=== PATIENT | male | born 1990 | race American Indian/Alaskan Native ===

== ENCOUNTER 2020-04-30 19:32 | Observation (INO) | payer MEDICARE ==
--- NOTE | 2020-04-30 21:25 | Event Note ---
ED Screening Note Date of service: 04/30/20 Time: 21:24 ED Screening Note: 30-year-old -Citizen Of [place] male reports that he was not able to do dialysis today secondary to his fistula swollen. This initial assessment/diagnostic orders/clinical plan/treatment(s) is/are subject to change based on patients health status, clinical progression and re- assessment by fellow clinical providers in the ED. Further treatment and workup at subsequent clinical providers discretion. Patient/guardian urged not to elope from the ED as their condition may be serious if not clinically assessed and managed. Initial orders include:
[2020-04-30 21:55] LABS: Basophils # (Auto) 0.1 K/mm3 (0.0-0.1); Eosinophils # (Auto) 0.1 K/mm3 (0.0-0.4); Eosinophils % (Auto) 1.8 % (0.0-4.3); Hematocrit 30.9 % (35.5-45.6); Hemoglobin 10.1 gm/dl (11.8-15.2); Lymphocytes # (Auto) 0.6 K/mm3 (1.2-5.4); Lymphocytes % (Auto) 8.8 % (13.4-35.0); Mean Corpuscular HGB Conc 33 % (32-34); Mean Corpuscular Volume 94 fl (84-94); Monocytes # (Auto) 0.5 K/mm3 (0.0-0.8); Monocytes % (Auto) 6.9 % (0.0-7.3); Platelet Count 317 K/mm3 (140-440); Red Blood Count 3.31 M/mm3 (3.65-5.03); Red Cell Distribution Width 18.4 % (13.2-15.2)
[2020-04-30 22:05] LABS: Albumin 4.6 g/dL (3.9-5); Calcium 10.2 mg/dL (8.4-10.2)
[2020-05-01] MEDS ORDERED: ONDANSETRON 4 MG/2 ML INJ IV ONE (09:20)
[2020-05-01] MEDS ORDERED: HYDROmorphone 1 MG/1 ML INJ IV ONE (09:21)
[2020-05-01] MEDS ORDERED: hydrALAZINE 20 MG/1 ML INJ IV ONE (09:23)
--- NOTE | 2020-05-01 09:23 | Emergency Department Report ---
ED General Adult HPI - General Chief complaint: Nausea/Vomiting/Diarrhea Stated complaint: NAUSEA AND VOMITING, BODY PAIN PUI?: No Time Seen by Provider: 05/01/20 08:53 Source: patient, RN notes reviewed, old records reviewed Mode of arrival: Stretcher Limitations: No Limitations, Physical Limitation - History of Present Illness Initial comments: The patient was evaluated in the emergency department for symptoms described in the history of present illness. He/she was evaluated in the context of the global COVID-19 pandemic, which necessitated consideration that the patient might be at risk for infection with the virus that causes COVID-19. Institutional protocols and algorithms that pertain to the evaluation of patient s at risk for COVID-19 are in a state of rapid change based on information released by regulatory bodies including the CDC and federal and state organizations. These policies and algorithms were followed during the patient's care in the emergency department. Please note that these policies, procedures and recommendations changed on a rapid basis. The patient is a 30-year-old gentleman. He is not known to myself previously. He typically lives in [facility]. He states that he is blind, has a left upper extremity hemodialysis fistula, and reports that he has a history of hypertension, and end-stage renal disease on hemodialysis. He states he was last dialyzed on Sunday. He presents to the ER with 2 complaints. His first complaint is subjective left upper extremity pain and swelling, present for 1 week. He reports no issues with receiving hemodialysis during his last session, 6 days ago. He cannot tell me why he missed hemodialysis yesterday, or the day before. He makes no complaint of extremity weakness/numbness. His next complaint is diffuse abdominal pain. He states "it has been there for minute." I try to clarify with the patient how long the pain has been there for. He states "it has been there for a long time." He indicates surgical history for cholecystectomy and appendectomy in the distant past. Positive nausea, vomiting. No diarrhea. No urinary symptoms. Also reports no relief or change in symptoms with taking a hot bath, or hot shower. During his history and physical with myself and the nurse taking care of him, he made multiple requests for Dilaudid/hydromorphone. As soon as his IV was placed, he asked the nurse "when am i getting my Dilaudid." -: Gradual, days(s) Location: abdomen, left, upper extremity Radiation: non-radiation Consistency: constant Improves with: other (Abdominal pain decreases with pain medication. It increases with palpation) Worsens with: movement, other (Palpation) - Related Data Allergies Allergy/AdvReac Type Severity Reaction Status Date / Time No Known Allergies Allergy Unverified 04/30/20 22:16 ED Review of Systems ROS: Stated complaint: NAUSEA AND VOMITING, BODY PAIN Other details as noted in HPI Constitutional: malaise, weakness. denies: fever Eyes: denies: eye discharge ENT: denies: epistaxis Cardiovascular: denies: chest pain Gastrointestinal: abdominal pain Genitourinary: denies: dysuria Musculoskeletal: arthralgia, myalgia Skin: denies: lesions Neurological: weakness Psychiatric: anxiety Hematological/Lymphatic: denies: easy bleeding ED Past Medical Hx - Past Medical History Previous Medical History?: Yes Hx Hypertension: Yes Hx Diabetes: Yes Hx Renal Disease: Yes Hx Seizures: Yes Additional medical history: BLIND - Surgical History Past Surgical History?: Yes Hx Cholecystectomy: Yes Hx Appendectomy: Yes - Social History Smoking Status: Never Smoker Substance Use Type: Marijuana ED Physical Exam - General Limitations: Physical Limitation General appearance: alert, anxious - Head Head exam: Present: atraumatic, normocephalic - Eye Eye exam: Present: normal appearance, EOMI. Absent: nystagmus - ENT ENT exam: Present: normal exam, normal orophraynx, mucous membranes moist, normal external ear exam - Neck Neck exam: Present: normal inspection, full ROM. Absent: tenderness, meningismus - Respiratory Respiratory exam: Present: normal lung sounds bilaterally. Absent: respiratory distress, wheezes, rales, rhonchi, stridor, decreased breath sounds - Cardiovascular Cardiovascular Exam: Present: normal rhythm, tachycardia, normal heart sounds. Absent: bradycardia, irregular rhythm, systolic murmur, diastolic murmur, rubs, gallop - GI/Abdominal GI/Abdominal exam: Present: soft, tenderness (Diffuse abdominal tenderness. The patient deliberately flexes his abdominal wall when I examined him.). Absent: distended, guarding, rebound, rigid, pulsatile mass - Rectal Rectal exam: Present: deferred - Extremities Exam Extremities exam: Present: normal inspection (There is a left upper extremity fistula. There is a positive thrill and bruit. There is no significant tenderness. There is good pulsatility.), full ROM, pedal edema (1+ edema bilateral lower extremities), other (2+ pulses noted in the bilateral upper and lower extremities. There is no palpable cord. negative Homans sign. Muscular compartments are soft. The pelvis is stable.). Absent: calf tenderness - Back Exam Back exam: Present: normal inspection, full ROM. Absent: tenderness, CVA tenderness (R), CVA tenderness (L), paraspinal tenderness, vertebral tenderness - Neurological Exam Neurological exam: Present: alert, other (No facial droop. Tongue midline. Extraocular movements intact bilaterally. Facial sensation intact to light touch in V1, V2, V3 distribution bilaterally. 5 and a 5 strength in 4 extremities. Sensation intact to light touch in 4 extremities.) - Psychiatric Psychiatric exam: Present: anxious - Skin Skin exam: Present: warm, dry, intact, normal color. Absent: rash ED Course Vital Signs 04/30/20 05/01/20 05/01/20 21:16 09:28 09:30 Temperature 98.1 F Pulse Rate 114 H 108 H 107 H Pulse Rate [ Apical] Pulse Rate [ Left Radial] Pulse Rate [ Right Radial] Respiratory 16 14 13 Rate Blood Pressure 181/120 159/101 Blood Pressure [Left] O2 Sat by Pulse 99 100 100 Oximetry 05/01/20 05/01/20 05/01/20 09:46 09:51 10:00 Temperature Pulse Rate 104 H 101 H 104 H Pulse Rate [ Apical] Pulse Rate [ Left Radial] Pulse Rate [ Right Radial] Respiratory 18 22 Rate Blood Pressure 159/101 158/101 165/106 Blood Pressure [Left] O2 Sat by Pulse 100 97 Oximetry 05/01/20 05/01/20 05/01/20 10:15 10:30 11:00 Temperature Pulse Rate 103 H 106 H 110 H Pulse Rate [ Apical] Pulse Rate [ Left Radial] Pulse Rate [ Right Radial] Respiratory 24 14 18 Rate Blood Pressure 157/98 151/96 161/93 Blood Pressure [Left] O2 Sat by Pulse 98 96 98 Oximetry 05/01/20 05/01/20 05/01/20 11:15 11:30 11:45 Temperature Pulse Rate 110 H 108 H 111 H Pulse Rate [ Apical] Pulse Rate [ Left Radial] Pulse Rate [ Right Radial] Respiratory 18 18 13 Rate Blood Pressure 156/103 153/100 157/92 Blood Pressure [Left] O2 Sat by Pulse 98 98 96 Oximetry 05/01/20 05/01/20 05/01/20 12:00 12:10 12:20 Temperature Pulse Rate 110 H 109 H 109 H Pulse Rate [ Apical] Pulse Rate [ Left Radial] Pulse Rate [ Right Radial] Respiratory 17 19 18 Rate Blood Pressure 158/106 158/106 157/101 Blood Pressure [Left] O2 Sat by Pulse 97 98 Oximetry 05/01/20 05/01/20 05/01/20 12:30 12:40 12:50 Temperature Pulse Rate 110 H 109 H 109 H Pulse Rate [ Apical] Pulse Rate [ Left Radial] Pulse Rate [ Right Radial] Respiratory 21 15 21 Rate Blood Pressure 156/105 156/105 149/102 Blood Pressure [Left] O2 Sat by Pulse 98 98 Oximetry 05/01/20 05/01/20 05/01/20 13:00 13:03 13:10 Temperature Pulse Rate 108 H 106 H Pulse Rate [ 86 Apical] Pulse Rate [ 86 Left Radial] Pulse Rate [ 86 Right Radial] Respiratory 20 19 22 Rate Blood Pressure 149/99 156/105 Blood Pressure [Left] O2 Sat by Pulse 99 99 Oximetry 05/01/20 05/01/20 05/01/20 13:15 13:20 13:31 Temperature Pulse Rate 89 Pulse Rate [ Apical] Pulse Rate [ Left Radial] Pulse Rate [ Right Radial] Respiratory Rate Blood Pressure 156/105 156/105 Blood Pressure 142/90 [Left] O2 Sat by Pulse 88 Oximetry 05/01/20 13:41 Temperature Pulse Rate Pulse Rate [ Apical] Pulse Rate [ Left Radial] Pulse Rate [ Right Radial] Respiratory Rate Blood Pressure 156/105 Blood Pressure [Left] O2 Sat by Pulse 96 Oximetry - Reevaluation(s) Reevaluation #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 05/01/20 11:20 Report Prepared: 05/01/2020 Date Range: 05/01/2019 05/01/2020 Pdf icon Download PDF Csv icon Download CSV norm merida Summary Summary Total Prescriptions 11 Total Private Pay 0 Total Prescribers 9 Total Pharmacies 4 Opioids* (excluding buprenorphine) Current Qty 0.0 Current MME/day 0.0 30 Day Avg MME/day 0.0 Buprenorphine* Current Qty 0.0 Current mg/day 0.0 30 Day Avg mg/day 0.0 Prescriptions Filled ID Written Drug QTY Days Prescriber Rx # Pharmacy * R efills Daily Dose Pymt Type [employer] 03/09/2020 1 03/09/2020 OXYCODON-ACETAMINOPHEN 7.5-325 26.0 5 SREE PER [id number] [facility] (6472) 0 58.5 [place]ME [place] 02/11/2020 2 02/11/2020 OXYCODONE HCL 5 MG TABLET 20.0 5 GR WEST [id number] [facility] (2120) 0 30.0 MME [place] 01/15/2020 1 01/15/2020 HYDROMORPHONE 4 MG TABLET 30.0 10 NA ART [id number] [facility] (0626) 0 48.0 [place] 01/05/2020 1 01/02/2020 HYDROCODONE-ACETAMIN 5-325 MG 10.0 3 JI SMI [id number] [facility] (4790) 0 16.67 [place] 12/11/2019 3 12/10/2019 HYDROMORPHONE 2 MG TABLET 15.0 4 MA SALOMON [id number] [facility] (9481) 0 30.0 [place] 11/27/2019 3 11/27/2019 OXYCODONE-ACETAMINOPHEN 10-325 20.0 5 SREE RAN [id number] [facility] (3914) 0 60.0 [place] 10/30/2019 1 10/29/2019 OXYCODONE-ACETAMINOPHEN 5-[address]O [id number] [facility] (4614) 0 30.0 [place] 09/16/2019 1 09/16/2019 OXYCODONE-ACETAMINOPHEN 5-325 25.0 9 [facility] [id number] [facility] (3940) 0 20.83 [place] 09/14/2019 1 09/09/2019 HYDROCODONE-ACETAMIN 7.5-325 30.0 5 SREE PER [id number] [facility] (2083) 0 45.0 [place] 09/08/2019 1 09/04/2019 TRAMADOL HCL 50 MG TABLET 15.0 4 KE WAS [id number] [facility] (8986) 0 18.75 [place] 09/08/2019 1 09/04/2019 OXYCODONE-ACETAMINOPHEN 5-325 15.0 4 KE WAS [id number] [facility] (0857) 0 28.13 [place] *Pharmacy is created using a combination of pharmacy name and the last four digits of the pharmacy license number. *Per CDC guidance, the MME conversion factors prescribed or provided as part of medication-assisted treatment for opioid use disorder should not be used to benchmark against dosage thresholds meant for opioids prescribed for pain. Buprenorphine products have no agreed upon morphine equivalency, and as partial opioid agonists, are not expected to be associated with overdose risk in the same dose-dependent manner as doses for full agonist opioids. MME = morphine milligram equivalents. mg = dose in milligrams. Prescribers Name Address [facility] Zip Phone SUMAN PENA MD [address] [facility] [address] IMER AGUILAR [address] [facility] [address] FELECIA ROCK MD [address] [facility] [address] GABRIELE ELIZONDO MD [address] [facility] [place] [address] [place] HOUSE III, MD [address] [facility] [address] [phone] BEVERLY DENNISON MD [address] [facility] [address] MARIE HOUSE MD, MPH [address] [facility] [address] [facility] [address] TANO QUAN [address] [facility] [address] MONICA MESA [address] [facility] [address] [facility] Address [facility] Zip Phone [facility] [address] [phone] [facility] [address] [facility] 100875 [phone] [facility] [address] [employer] [phone] [address] [facility] [phone] [facility] [id number] 05/01/20 11:33 - Consultations Consultation #1: 05/01/20 11:32 Discussed history, physical, pertinent laboratory studies, imaging findings with nephrology on-call, Dr. Kiara Hutchinson He will arrange for hemodialysis after CT scan with IV contrast.. We are also in agreement that the left upper extremity fistula appears to be usable, and if the dialysis team encounters any issues during hemodialysis, they can reach out to vascular surgery with further questions. However, at this point time, the fistula appears to be usable. 05/01/20 14:48 ED Medical Decision Making - Lab Data Result diagrams: 04/30/20 21:32 05/01/20 09:43 Vital Signs 04/30/20 05/01/20 21:16 09:51 Temperature 98.1 F Pulse Rate 114 H 101 H Respiratory 16 Rate Blood Pressure 181/120 158/101 O2 Sat by Pulse 99 Oximetry Lab Results 04/30/20 04/30/20 05/01/20 Range/Units 21:32 21:32 09:43 WBC 7.4 (4.5-11.0) K/mm3 RBC 3.31 L (3.65-5.03) M/mm3 Hgb 10.1 L (11.8-15.2) gm/dl Hct 30.9 L (35.5-45.6) % MCV 94 (84-94) fl MCH 31 (28-32) pg MCHC 33 (32-34) % RDW 18.4 H (13.2-15.2) % Plt Count 317 (140-440) K/mm3 Lymph % (Auto) 8.8 L (13.4-35.0) % [place] % (Auto) 6.9 (0.0-7.3) % Eos % (Auto) 1.8 (0.0-4.3) % Baso % (Auto) Dialysis Rn Lymph # (Auto) 0.6 L (1.2-5.4) K/mm3 [place] # (Auto) 0.5 (0.0-0.8) K/mm3 Eos # (Auto) 0.1 (0.0-0.4) K/mm3 Baso # (Auto) 0.1 (0.0-0.1) K/mm3 Seg Neutrophils % 81.2 H (40.0-70.0) % Seg Neutrophils # 6.0 (1.8-7.7) K/mm3 PT (12.2-14.9) Sec. INR (0.87-1.13) Sodium 137 (137-145) mmol/L Potassium 5.2 H (3.6-5.0) mmol/L Chloride 97.7 L (98-107) mmol/L Carbon Dioxide 20 L (22-30) mmol/L Anion Gap 25 mmol/L BUN 82 H (9-20) mg/dL Creatinine 10.7 H (0.8-1.3) mg/dL Estimated GFR 7 ml/min BUN/Creatinine Ratio 8 % Glucose 184 H (75-100) mg/dL Lactic Acid 1.00 (0.7-2.0) mmol/L Calcium 10.2 (8.4-10.2) mg/dL Magnesium (1.7-2.3) mg/dL Total Bilirubin 0.70 (0.1-1.2) mg/dL AST 35 (5-40) units/L ALT 30 (7-56) units/L Alkaline Phosphatase 168 H (35-129) units/L Total Creatine Kinase (55-170) units/L Total Protein 7.7 (6.3-8.2) g/dL Albumin 4.6 (3.9-5) g/dL Albumin/Globulin Ratio 1.5 % Lipase (13-60) units/L 05/01/20 05/01/20 Range/Units 09:43 09:43 WBC (4.5-11.0) K/mm3 RBC (3.65-5.03) M/mm3 Hgb (11.8-15.2) gm/dl Hct (35.5-45.6) % MCV (84-94) fl MCH (28-32) pg MCHC (32-34) % RDW (13.2-15.2) % Plt Count (140-440) K/mm3 Lymph % (Auto) (13.4-35.0) % [place] % (Auto) (0.0-7.3) % Eos % (Auto) (0.0-4.3) % Baso % (Auto) Lymph # (Auto) (1.2-5.4) K/mm3 [place] # (Auto) (0.0-0.8) K/mm3 Eos # (Auto) (0.0-0.4) K/mm3 Baso # (Auto) (0.0-0.1) K/mm3 Seg Neutrophils % (40.0-70.0) % Seg Neutrophils # (1.8-7.7) K/mm3 PT 13.0 (12.2-14.9) Sec. INR 1.00 (0.87-1.13) Sodium 139 (137-145) mmol/L Potassium 4.5 (3.6-5.0) mmol/L Chloride 99.7 (98-107) mmol/L Carbon Dioxide 21 L (22-30) mmol/L Anion Gap 23 mmol/L BUN 90 H (9-20) mg/dL Creatinine 11.7 H (0.8-1.3) mg/dL Estimated GFR 6 ml/min BUN/Creatinine Ratio 8 % Glucose 135 H (75-100) mg/dL Lactic Acid (0.7-2.0) mmol/L Calcium 10.0 (8.4-10.2) mg/dL Magnesium 2.20 (1.7-2.3) mg/dL Total Bilirubin (0.1-1.2) mg/dL AST (5-40) units/L ALT (7-56) units/L Alkaline Phosphatase (35-129) units/L Total Creatine Kinase 530 H (55-170) units/L Total Protein (6.3-8.2) g/dL Albumin (3.9-5) g/dL Albumin/Globulin Ratio % Lipase 48 (13-60) units/L - EKG Data -: EKG Interpreted by Ri EKG shows normal: sinus rhythm Rate: normal - EKG Data 05/01/20 11:33 Sinus rhythm, tachycardia, 102 bpm, normal axis, high left ventricular voltage, QTC 493 ms, the EKG is abnormal, the EKG is not a STEMI. - Radiology Data Radiology results: report reviewed, image reviewed Print Report Referring Physician: LILIA TREVIÑO Patient Name: NORM MERIDA Date of : 1990 Sex: Male Report Date: 2020-05-01 Report Status: Finalized Findings [facility] [address] [place] [address] Cat Scan Report Signed Patient: NORM MERIDA MR#: [id number] : 1990 Acct:[id number] Age/Sex: 30 / M ADM Date: 04/30/20 Loc: ED Attending Dr: Ordering Physician: LILIA TREVIÑO MD Date of Service: 05/01/20 Procedure(s): CT abdomen pelvis w con Accession Number(s): [id number] cc: LILIA TREVIÑO MD CT ABDOMEN AND PELVIS WITH CONTRAST INDICATION / CLINICAL INFORMATION: Abdominal pain with nausea and vomiting for one week. Dialysis patient. TECHNIQUE: Axial CT images were obtained through the abdomen and pelvis after 100 mL Omnipaque [address] scans at this location are performed using CT dose reduction for ALARA by means of automated exposure control. COMPARISON: None available. FINDINGS: LOWER CHEST: Heart appears mildly enlarged. Moderate, bilateral, symmetric gynecomastia. LIVER: Small hypodensities in the right lobe are too small to characterize but probably represent cysts. Possible hepatic congestion. GALLBLADDER: Cholecystectomy. BILE DUCTS: No significant abnormality. PANCREAS: No significant abnormality. SPLEEN: No significant abnormality. ADRENALS: No significant abnormality. RIGHT KIDNEY / URETER: Small but no acute abnormality. LEFT KIDNEY / URETER: Small but no acute abnormality. STOMACH / SMALL BOWEL: Thickening of the distal esophagus. Fluid-filled, nondilated small bowel. COLON: No significant abnormality. APPENDIX: Not visualized. PERITONEUM: No free fluid. No free air. No fluid collection. LYMPH NODES: Small vessel arterial calcifications which can be seen in diabetes and/or renal failure. AORTA / ARTERIES: No significant abnormality. IVC / VEINS: No significant abnormality. URINARY BLADDER: No significant abnormality. REPRODUCTIVE ORGANS: No significant abnormality. ADDITIONAL FINDINGS: Moderate body wall edema. SKELETAL SYSTEM: No significant abnormality. IMPRESSION: 1. No inflammatory process or bowel obstruction. 2. Fluid-filled, nondilated small bowel which can be seen in enteritis. Signer Name: Isrrael Cifuentes MD Signed: 05/01/2020 11:07 AM Workstation Name: [id number] Transcribed By: DT Dictated By: Rogerio Cifuentes MD Electronically Authenticated By: Rogerio Cifuentes MD Signed Date/Time: 05/01/201106 DD/ 02 TD/TT: - Medical Decision Making Differential diagnosis, including but not limited to: Narcotic bowel syndrome, cyclic vomiting syndrome, obstruction, colitis, diverticulitis, narcotic dependence, cannabinoid hyperemesis syndrome, end-stage renal disease on hemodialysis, noncompliance, azotemia, uremia, hyperkalemia, metabolic acidosis, left upper extremity fistula stenosis Assessment and plan: 30-year-old gentleman with 2 complaints. Complaint #1, diffuse abdominal pain. He states this pain has been there for a long time. He is diffusely tender, but appears to be deliberately exaggerating his examination. He has made multiple requests for hydromorphone. Given his exam, and unreliability, CT scan of the abdomen pelvis with IV contrast is emergently obtained, does not demonstrate any acute surgical pathology. He was given a single dose of hydromorphone, Zofran, And I will withhold narcotics at this time. Do not see indication for narcotic therapy. [facility] is reviewed and appreciated. It appears that this patient has multiple mailing addresses on file. Nephrology has been contacted, and they will arrange for hemodialysis. They agree that his left upper extremity fistula appears to be usable. Complaint #2, left upper extremity pain. Vascular laborer hoisting not available to do hemodialysis access study. Do not suspect DVT. There may be a component of chronic stenosis. However, do not see indication for emergent angiogram, or emergent vascular surgery consultation given his examination and presentation at this time. If his fistula has any complications or utilization issues during hemodialysis, will defer to nephrology/inpatient team to further follow-up with vascular surgery. Hospital physician, Dr. Kiara Celeste to admit Critical care attestation.: If time is entered above; I have spent that time in minutes in the direct care of this critically ill patient, excluding procedure time. ED Disposition Clinical Impression: Acute abdominal pain, Azotemia, Uremia, End-stage renal disease on hemodi alysis, Left arm pain, Metabolic acidosis, Noncompliance, Request for narcotic pain medication Disposition: 09 OP ADMIT IP TO THIS HOSP Is pt being admited?: Yes Does the pt Need Aspirin: No Condition: Good
--- NOTE | 2020-05-01 09:52 | Consultation ---
History of Present Illness - Reason for Consult Consult date: 05/01/20 end stage renal disease, hyperkalemia - History of Present Illness The patient is a 30 YO male with history significant for DM type 1, HTN, Anemia, bilateral blindness 2/2 diabetic nephropathy and ESRD on hemodialysis (MWF) who presented to [facility] ED 04/30 with c/o diffuse abdominal pain for the past week. he describes the pain as constant, sharp, not radiating and increases with food. He also reports decreased PO intake, N & V. Denies any diarrhea, constipation, urinary symptoms, fever, chills, dizziness, leg swelling, weakness or syncope. He states he was last dialyzed on Sunday. he did go to the dialysis unit yesterday but couldn't get HD due to abd pain. Reports some L arm swelling. Labs significant for Creat 11.7 and BUN 90. Medications and Allergies Allergies Allergy/AdvReac Type Severity Reaction Status Date / Time No Known Allergies Allergy Unverified 04/30/20 22:16 Review of Systems Constitutional: anorexia, fatigue, no weight loss, no weight gain, no fever, no chills, no weakness Cardiovascular: high blood pressure, no chest pain, no orthopnea, no edema, no syncope, no lightheadedness, no shortness of breath, no leg edema Respiratory: no cough, no hemoptysis, no shortness of breath Gastrointestinal: abdominal pain, nausea, vomiting, no diarrhea, no constipation, no melena, no hematochezia Genitourinary Male: no dysuria, no hematuria Integumentary: no wounds Neurological: no convulsions, no aphasia, no change in speech, no change in mentation Exam - Vital Signs Vital signs: Vital Signs Temp Pulse Resp BP Pulse Ox 98.1 F 114 H 16 181/120 99 04/30/20 21:16 04/30/20 21:16 04/30/20 21:16 04/30/20 21:16 04/30/20 21:16 Results - Lab Results 04/30/20 21:32 05/01/20 09:43 Most recent lab results Calcium 10.2 mg/dL (8.4-10.2) 04/30/20 21:32 Assessment and Plan 1. ESRD: Patient is on maintenance hemodialysis three times a week, MWF schedule. Patient missed HD 04/30. Hemodialysis: 05/01. 2. FEN: Hyperkalemia, HD today. Monitor lytes and volume status. 3. Abdominal pain: Normal Lipase. CT abdomen with IV contrast; ? enteritis. Supportive care. 4. DM type 1: Monitor blood sugar. 5. HTN. 8. Anemia: Epogen as needed. Subjective: Patient was seen and examined at the bedside. Examination: General appearance: well-developed, appears stated age, not in distress HEENT: ATNC, pupils; white reflex Neck: trachea midline Respiratory: ctab Heart: S1S2, regular, no murmurs Gastrointestinal: soft, not tender, BS heard Integumentary: no rash, warm and dry Neurologic: AO, bilateral blindness, able to move extremities Ext: no edema Hemodialysis access: L arm AVF
--- NOTE | 2020-05-01 11:12 | Cat Scan Report ---
CT ABDOMEN AND PELVIS WITH CONTRAST INDICATION / CLINICAL INFORMATION: Abdominal pain with nausea and vomiting for one week. Dialysis pat ient. TECHNIQUE: Axial CT images were obtained through the abdomen and pelvis after 100 mL Omnipaque [address] scans at this location are performed using CT dose reduction for ALARA by means of automated exposure control. COMPARISON: None available. FINDINGS: LOWER CHEST: Heart appears mildly enlarged. Moderate, bilateral, symmetric gynecomastia. LIVER: Small hypodensities in the right lobe are too small to characterize but probably represent cys ts. Possible hepatic congestion. GALLBLADDER: Cholecystectomy. BILE DUCTS: No significant abnormality. PANCREAS: No significant abnormality. SPLEEN: No significant abnormality. ADRENALS: No significant abnormality. RIGHT KIDNEY / URETER: Small but no acute abnormality. LEFT KIDNEY / URETER: Small but no acute abnormality. STOMACH / SMALL BOWEL: Thickening of the distal esophagus. Fluid-filled, nondilated small bowel. COLON: No significant abnormality. APPENDIX: Not visualized. PERITONEUM: No free fluid. No free air. No fluid collection. LYMPH NODES: Small vessel arterial calcifications which can be seen in diabetes and/or renal failure. AORTA / ARTERIES: No significant abnormality. IVC / VEINS: No significant abnormality. URINARY BLADDER: No significant abnormality. REPRODUCTIVE ORGANS: No significant abnormality. ADDITIONAL FINDINGS: Moderate body wall edema. SKELETAL SYSTEM: No significant abnormality. IMPRESSION: 1. No inflammatory process or bowel obstruction. 2. Fluid-filled, nondilated small bowel which can be seen in enteritis. Signer Name: Isrrael Cifuentes MD Signed: 05/01/2020 11:07 AM Workstation Name: [id number]
[2020-05-01] MEDS ORDERED: ACETAMINOPHEN 325 MG TAB PO ONE (11:30)
[2020-05-01] MEDS ORDERED: SODIUM CHLORIDE 0.9% 100 ML IV PRN (11:41)
[2020-05-01] MEDS ORDERED: HEPARIN 10,000 UNITS/10 ML VIAL IV PRN (11:41)
--- NOTE | 2020-05-01 12:22 | History and Physical Report ---
History of Present Illness Chief complaint: I need dialysis today, because i did not get it yesterday History of present illness: 30 YO Male with Obesity, ESRD on HD(M,W,F), HTN, DM, Seizure Disorder, Legally Blind presents to ED for evaluation. Patient states that he needs dialysis. Patient knowledges noncompliance with dialysis. EMS was notified and upon arrival the patient was subsequently transported to [facility] for further care and evaluation. Patient seen and evaluated in the emergency department. All lab an d imaging studies reviewed. Patient found to have end-stage renal disease in need of urgent dialysis due to noncompliance with outpatient dialysis. Nephrology team consulted in ED for urgent dialysis due to increased risk of worsening symptoms. Patient denies fever, chills, chest pain, palpitation, productive cough, shortness of breath, recent ill contacts, or known exposure to COVID-19. No prior admission for review. All medication listed at time of admission has been reconciled. Past History Past Medical History: diabetes, ESRD, hypertension, other (See HPI) Past Surgical History: Other (Dialysis access) Social history: single. denies: smoking, alcohol abuse, prescription drug abuse Family history: diabetes, hypertension Medications and Allergies Allergies Allergy/AdvReac Type Severity Reaction Status Date / Time No Known Allergies Allergy Unverified 04/30/20 22:16 Active Meds: Active Medications Heparin Sodium (Porcine) (Heparin 10,000 Units/10 Ml Vial) 3,000 unit IV RAYMOND PRN PRN Reason: hemodialysis Sodium Chloride (Nacl 0.9%) 100 mls @ 999 mls/hr IV RAYMOND PRN PRN Reason: Hypotension Review of Systems Constitutional: no weight loss, no weight gain, no fever Ears, nose, mouth and throat: no ear pain, no decreased hearing, no nasal congestion, no nasal discharge Cardiovascular: no chest pain, no lightheadedness Respiratory: no cough Gastrointestinal: no abdominal pain, no nausea, no diarrhea, no change in bowel habits, no hematemesis Genitourinary Male: no flank pain, no urinary frequency Rectal: no pain, no incontinence, no bleeding Musculoskeletal: no neck stiffness, no neck pain, no arm numbness/tingling, no low back pain Integumentary: no rash, no sores, no wounds, no jaundice, no blisters Neurological: no transient paralysis, no weakness, no numbness, no tingling, no syncope Psychiatric: no anxiety, no sleep disturbances, no insomnia, no change in appetite, no change in libido, no suicidal ideation, no disorientation Endocrine: no cold intolerance, no heat intolerance, no polyphagia, no excessive thirst, no polydipsia, no nocturia, no flushing Hematologic/Lymphatic: no easy bruising, no easy bleeding Allergic/Immunologic: no allergic rhinitis Exam - Constitutional Vitals: Temp Pulse Resp BP Pulse Ox 98.1 F 110 H 17 158/106 96 04/30/20 21:16 05/01/20 12:00 05/01/20 12:00 05/01/20 12:00 05/01/20 11:45 General appearance: Present: mild distress - EENT Eyes: Present: PERRL ENT: hearing intact, clear oral mucosa - Neck Neck: Present: supple, normal ROM - Respiratory Respiratory effort: normal Respiratory: bilateral: CTA - Cardiovascular Heart Sounds: Present: S1 & S2. Absent: rub, click - Extremities Extremities: pulses symmetrical, No edema Peripheral Pulses: within normal limits - Abdominal General gastrointestinal: Present: soft, non-tender, non-distended, normal bowel sounds Male genitourinary: Present: normal - Integumentary Integumentary: Present: clear, warm, dry - Musculoskeletal Musculoskeletal: gait normal, strength equal bilaterally - Psychiatric Psychiatric: appropriate mood/affect, intact judgment & insight - Neurologic Neurologic: CNII-XII intact, moves all extremities Results - Labs CBC & Chem 7: 04/30/20 21:32 05/01/20 09:43 Labs: Abnormal lab results 04/30/20 04/30/20 05/01/20 Range/Units 21:32 21:32 09:43 RBC 3.31 L (3.65-5.03) M/mm3 Hgb 10.1 L (11.8-15.2) gm/dl Hct 30.9 L (35.5-45.6) % RDW 18.4 H (13.2-15.2) % Lymph % (Auto) 8.8 L (13.4-35.0) % Lymph # (Auto) 0.6 L (1.2-5.4) K/mm3 Seg Neutrophils % 81.2 H (40.0-70.0) % Potassium 5.2 H (3.6-5.0) mmol/L Chloride 97.7 L (98-107) mmol/L Carbon Dioxide 20 L 21 L (22-30) mmol/L BUN 82 H 90 H (9-20) mg/dL Creatinine 10.7 H 11.7 H (0.8-1.3) mg/dL Glucose 184 H 135 H (75-100) mg/dL Alkaline Phosphatase 168 H (35-129) units/L Total Creatine Kinase 530 H (55-170) units/L Assessment and Plan - Patient Problems (1) End stage renal disease Current Visit: Yes Status: Acute Plan to address problem: Strict I/O, monitor renal output every shift, avoid nephrotoxic agents, nephrology team consulted, dialysis as per renal team. (2) Obesity Current Visit: Yes Status: Acute Plan to address problem: Balanced diet, increase physical activity at discharge. Outpatient pulmonary follow-up for sleep study. (3) Hypertension Current Visit: Yes Status: Acute Qualifiers: Hypertension type: essential hypertension Qualified Code(s): I10 - Essential (primary) hypertension Plan to address problem: Monitor blood pressure every shift, continue medical management. (4) Diabetes Current Visit: Yes Status: Acute Plan to address problem: Consistent carbohydrate diet, Accu-Chek, sliding scale insulin therapy, hypo glycemia protocol. (5) Noncompliance Current Visit: Yes Status: Acute Plan to address problem: Patient counseled regarding noncompliance with outpatient dialysis. Patient acknowledges understanding instructions. Patient reports that he will attempt to be more compliant in the future. (6) DVT prophylaxis Current Visit: Yes Status: Acute Plan to address problem: SCD to bilateral lower extremities while in bed, patient is ambulatory.
[2020-05-01 12:44] LABS: Bilirubin,Urine NEG (Negative); Blood,Urine SM (Negative); Color,Urine Straw (Yellow); Urobilinogen,Urine < 2.0 mg/dL (<2.0)
[2020-05-01 17:39] LABS: Hepatitis B Surface Antigen Non-Reactive (Negative); Hepatitis C Virus Antibody Non-Reactive (NonReactive)
[2020-05-01] MEDS: ACETAMINOPHEN 325 MG TAB PO PRN (21:04)
--- NOTE | 2020-05-02 09:32 | Progress Note ---
Assessment and Plan Assessment and plan: ESRD. Continue hemodialysis per nephrology recommendations. Hypertension. Resume home antihypertensive medications. Diabetes mellitus type 2. Continue Accu-Cheks and sliding scale insulin. Tight glycemic control. Consistent carbohydrate diet. Medical noncompliance. Patient counseled regarding noncompliance with outpatient hemodialysis. Obesity. Balanced diet, increase physical activity at discharge. History Interval history: No new issues overnight. Hospitalist Physical - Constitutional Vitals: Temp Pulse Resp BP Pulse Ox 97.8 F 93 H 18 158/102 99 05/02/20 07:46 05/02/20 07:46 05/02/20 07:46 05/02/20 07:46 05/02/20 07:46 General appearance: Present: mild distress - EENT Eyes: Present: PERRL, EOM intact ENT: hearing intact, clear oral mucosa, dentition normal - Neck Neck: Present: supple, normal ROM - Respiratory Respiratory effort: normal Respiratory: bilateral: CTA - Cardiovascular Rhythm: regular Heart Sounds: Present: S1 & S2. Absent: gallop, rub - Extremities Extremities: no ischemia, No edema, Full ROM - Abdominal General gastrointestinal: soft, non-tender, non-distended, normal bowel sounds - Integumentary Integumentary: Present: clear, warm, dry - Neurologic Neurologic: CNII-XII intact, moves all extremities Results - Labs CBC & Chem 7: 04/30/20 21:32 05/01/20 09:43 Labs: Laboratory Last Values WBC 7.4 K/mm3 (4.5-11.0) 04/30/20 21:32 RBC 3.31 M/mm3 (3.65-5.03) L 04/30/20 21:32 Hgb 10.1 gm/dl (11.8-15.2) L 04/30/20 21:32 Hct 30.9 % (35.5-45.6) L 04/30/20 21:32 MCV 94 fl (84-94) 04/30/20 21:32 MCH 31 pg (28-32) 04/30/20 21:32 MCHC 33 % (32-34) 04/30/20 21:32 RDW 18.4 % (13.2-15.2) H 04/30/20 21:32 Plt Count 317 K/mm3 (140-440) 04/30/20 21:32 Lymph % (Auto) 8.8 % (13.4-35.0) L 04/30/20 21:32 [place] % (Auto) 6.9 % (0.0-7.3) 04/30/20 21:32 Eos % (Auto) 1.8 % (0.0-4.3) 04/30/20 21:32 Baso % (Auto) Agricultural [employer]ist 04/30/20 21:32 Lymph # (Auto) 0.6 K/mm3 (1.2-5.4) L 04/30/20 21:32 [place] # (Auto) 0.5 K/mm3 (0.0-0.8) 04/30/20 21:32 Eos # (Auto) 0.1 K/mm3 (0.0-0.4) 04/30/20 21:32 Baso # (Auto) 0.1 K/mm3 (0.0-0.1) 04/30/20 21:32 Seg Neutrophils % 81.2 % (40.0-70.0) H 04/30/20 21:32 Seg Neutrophils # 6.0 K/mm3 (1.8-7.7) 04/30/20 21:32 PT 13.0 Sec. (12.2-14.9) 05/01/20 09:43 INR 1.00 (0.87-1.13) 05/01/20 09:43 Sodium 139 mmol/L (137-145) 05/01/20 09:43 Potassium 4.5 mmol/L (3.6-5.0) 05/01/20 09:43 Chloride 99.7 mmol/L (98-107) 05/01/20 09:43 Carbon Dioxide 21 mmol/L (22-30) L 05/01/20 09:43 Anion Gap 23 mmol/L 05/01/20 09:43 BUN 90 mg/dL (9-20) H 05/01/20 09:43 Creatinine 11.7 mg/dL (0.8-1.3) H 05/01/20 09:43 Estimated GFR 6 ml/min 05/01/20 09:43 BUN/Creatinine Ratio 8 % 05/01/20 09:43 Glucose 135 mg/dL (75-100) H 05/01/20 09:43 POC Glucose 96 mg/dL (70-105) 05/02/20 07:57 Lactic Acid 1.00 mmol/L (0.7-2.0) 05/01/20 09:43 Calcium 10.0 mg/dL (8.4-10.2) 05/01/20 09:43 Magnesium 2.20 mg/dL (1.7-2.3) 05/01/20 09:43 Total Bilirubin 0.70 mg/dL (0.1-1.2) 04/30/20 21:32 AST 35 units/L (5-40) 04/30/20 21:32 ALT 30 units/L (7-56) 04/30/20 21:32 Alkaline Phosphatase 168 units/L (35-129) H 04/30/20 21:32 Total Creatine Kinase 530 units/L (55-170) H 05/01/20 09:43 Total Protein 7.7 g/dL (6.3-8.2) 04/30/20 21:32 Albumin 4.6 g/dL (3.9-5) 04/30/20 21:32 Albumin/Globulin Ratio 1.5 % 04/30/20 21:32 Lipase 48 units/L (13-60) 05/01/20 09:43 Urine Color Straw (Yellow) 05/01/20 12:20 Urine Turbidity Clear (Clear) 05/01/20 12:20 Urine pH 7.0 (5.0-7.0) 05/01/20 12:20 Ur Specific [place] 1.010 (1.003-1.030) 05/01/20 12:20 Urine Protein 100 mg/dl mg/dL (Negative) 05/01/20 12:20 Urine Glucose (UA) 150 mg/dL (Negative) 05/01/20 12:20 Urine Ketones Neg mg/dL (Negative) 05/01/20 12:20 Urine Blood Sm (Negative) 05/01/20 12:20 Urine Nitrite Neg (Negative) 05/01/20 12:20 Urine Bilirubin Neg (Negative) 05/01/20 12:20 Urine Urobilinogen < 2.0 mg/dL (<2.0) 05/01/20 12:20 Ur Leukocyte Esterase Neg (Negative) 05/01/20 12:20 Urine WBC (Auto) 1.0 /HPF (0.0-6.0) 05/01/20 12:20 Urine RBC (Auto) 3.0 /HPF (0.0-6.0) 05/01/20 12:20 Hepatitis A IgM Ab Non-reactive (NonReactive) 05/01/20 16:27 Hep Bs Antigen Non-reactive (Negative) 05/01/20 16:27 Hep B Core IgM Ab Non-reactive (NonReactive) 05/01/20 16:27 Hepatitis C Antibody Non-reactive (NonReactive) 05/01/20 16:27 Painting/IV: Voiding Method Toilet IV Catheter Type [Right Peripheral IV Forearm] Active Medications - Current Medications Current Medications: Generic Name Dose Route Start Last Admin Trade Name Freq PRN Reason Stop Dose Admin Acetaminophen 650 mg 05/01/20 15:00 05/01/20 21:04 Acetaminophen 325 Mg Tab PO 650 mg Q6H PRN Administration Pain, Mild (1-3) Heparin Sodium (Porcine) 3,000 unit 05/01/20 11:41 Heparin 10,000 Units/10 Ml Vial IV RAYMOND PRN hemodialysis Sodium Chloride 100 mls @ 999 mls/hr 05/01/20 11:41 Nacl 0.9% IV RAYMOND PRN Hypotension
--- NOTE | 2020-05-02 10:28 | Progress Note ---
Assessment and Plan 1. ESRD: Patient is on maintenance hemodialysis three times a week, MWF schedule. Patient missed HD 04/30. Hemodialysis: 05/01. 2. FEN: Hyperkalemia, improved with HD. Monitor lytes and volume status. 3. Abdominal pain: Normal Lipase. CT abdomen with IV contrast; ? enteritis. Supportive care. 4. DM type 1: Monitor blood sugar. 5. HTN. 8. Anemia: Epogen as needed. Subjective: Patient was seen and examined at the bedside. C/o abd pain, asking for IV narcotics. Examination: General appearance: well-developed, appears stated age, not in distress HEENT: ATNC, pupils; white reflex Neck: trachea midline Respiratory: ctab Heart: S1S2, regular, no murmur Gastrointestinal: soft, not tender, BS heard Integumentary: no rash, warm and dry Neurologic: AO, bilateral blindness, able to move extremities Ext: no edema Hemodialysis access: L arm AVF Subjective Date of service: 05/02/20 Objective - Vital Signs Vital signs: Vital Signs - 12hr 05/01/20 05/02/20 05/02/20 22:51 03:06 07:46 Temperature 98.1 F 98.2 F 97.8 F Pulse Rate 105 H 105 H 93 H Respiratory 16 16 18 Rate Blood Pressure 138/79 175/111 158/102 O2 Sat by Pulse 97 98 99 Oximetry - Lab 04/30/20 21:32 05/01/20 09:43 Most recent lab results Calcium 10.0 mg/dL (8.4-10.2) 05/01/20 09:43 Magnesium 2.20 mg/dL (1.7-2.3) 05/01/20 09:43 Medications & Allergies - Medications Allergies/Adverse Reactions: Allergies No Known Allergies Allergy (Unverified 04/30/20 22:16) Home Medications: Home Medications Medication Instructions Recorded Confirmed Last Taken Type Dilaudid 2 mg PO Q6HR PRN 05/02/20 05/02/20 05/01/20 History Gabapentin 300 mg PO TID 05/02/20 05/02/20 04/30/20 History Keppra TAB 750 mg PO BID 05/02/20 05/02/20 04/30/20 History Melatonin 10 mg PO HS 05/02/20 05/02/20 04/30/20 History Ondansetron 4 mg PO Q8HR 05/02/20 05/02/20 04/30/20 History Active Medications: Generic Name Dose Route Start Last Admin Trade Name Freq PRN Reason Stop Dose Admin Acetaminophen 650 mg 05/01/20 15:00 05/01/20 21:04 Acetaminophen 325 Mg Tab PO 650 mg Q6H PRN Administration Pain, Mild (1-3) Heparin Sodium (Porcine) 3,000 unit 05/01/20 11:41 Heparin 10,000 Units/10 Ml Vial IV RAYMOND PRN hemodialysis Sodium Chloride 100 mls @ 999 mls/hr 05/01/20 11:41 Nacl 0.9% IV RAYMOND PRN Hypotension
[2020-05-02] MEDS: ACETAMINOPHEN 325 MG TAB PO PRN (11:41)
[2020-05-02 15:38] VITALS: BP 152/104
--- NOTE | 2020-05-03 11:58 | Discharge Summary ---
Providers - Providers Date of Admission: 05/01/20 12:21 Date of discharge: 05/02/20 Attending physician: WADE JONES 05/01/20 09:41 Consult to Physician [CONS] Urgent Comment: Consulting Provider: SURAJ COLORADO Physician Instructions: Reason For Exam: esrd Primary care physician: CAMERA MACHINIST Hospitalization Reason for admission: Missed hemodialysis Condition: Good Hospital course: 30 YO Male with Obesity, ESRD on HD(M,W,F), HTN, DM, Seizure Disorder, Legally Blind presented through the emergency department with chief complaint of missed hemodialysis. Patient was admitted with diagnosis of volume overload from missed hemodialysis and mild hyperkalemia with a potassium of 5.2. Patient also complained of abdominal pain with CT scan revealing enteritis. Patient was scheduled to receive IV antibiotics and continued treatment for missed hemodialysis. However, after patient received hemodialysis shortly after admission, he signed out AMA. Dedicated discharge time 32 minutes. Disposition: DC-01 TO HOME OR SELFCARE Core Measure Documentation - Palliative Care Palliative Care/ Comfort Measures: Not Applicable Exam - Constitutional Vitals: Temp Pulse Resp BP Pulse Ox 97.6 F 95 H 19 152/104 100 05/02/20 15:37 05/02/20 15:37 05/02/20 15:37 05/02/20 15:37 05/02/20 15:37 Plan Follow up with: PRIMARY CAREMD [Primary Care Provider] - 3-5 Days Forms: AMA Form
== END 2020-05-02 19:39 | disposition home or self-care (01) ==
LOC: ED 19:32 → 4A 05-01 12:21
PROVIDERS: ADMIT Hospitalist; ATTEND Hospitalist
DX: I12.0 Hypertensive chronic kidney disease with stage 5 chronic kidney disease or end stage renal disease (principal); N18.6 End stage renal disease; E66.9 Obesity, unspecified; E11.22 Type 2 diabetes mellitus with diabetic chronic kidney disease; M79.602 Pain in left arm; E87.2 Acidosis; R79.89 Other specified abnormal findings of blood chemistry; R10.9 Unspecified abdominal pain; R56.9 Unspecified convulsions; Z91.14 Patient's other noncompliance with medication regimen; Z99.2 Dependence on renal dialysis; Z90.49 Acquired absence of other specified parts of digestive tract; Z98.890 Other specified postprocedural states; Z68.27 Body mass index [BMI] 27.0-27.9, adult
CPT/HCPCS: 36415; 74177; 80048; 80053; 80074; 81001; 82140; 82550; 82962; 83690; 83735; 85025; 85610; 93005; 96374; 96375; 99285; G0378; J0360; J1170; J2405; Q9967